=== PATIENT | male | born 1960 | race American Indian/Alaskan Native ===

== ENCOUNTER 2018-03-18 12:57 | Emergency (ER) | payer SELFPAY ==
[2018-03-18 13:34] VITALS: BP 140/91
--- NOTE | 2018-03-18 14:19 | Emergency Department Report ---
ED ENT HPI - General Chief complaint: Neuro Symptoms/Deficit Stated complaint: LFT SIDE JAW PAIN Time Seen by Provider: 03/18/18 14:12 Source: patient Mode of arrival: Ambulatory Limitations: No Limitations - History of Present Illness Initial comments: This is a 57-year-old male nontoxic, well nourished in appearance, no acute signs of distress presents to the ED with c/o of left lower toothache 3 weeks. Patient denies following up with a dentist. Patient stated that pain radiates from his job to his left side of head. Patient otherwise denies any head trauma. Patient describes toothache as aching level of 8 out of 10. Patient denies any facial swelling. Patient denies any numbness, tingling, fever, chills, headache, stiff neck, abdominal pain, chest pain, shortness of breath. Patient stated allergies to AGUSTO inhibitors. PMH includes HTN. MD complaint: tooth pain -: week(s) (3) Location: tooth # 1 - pain here Severity: mild Severity scale (0 -10): 8 Quality: aching Consistency: constant Improves with: none Worsens with: none Context- Dental: history of dental caries, poor dental care Associated Symptoms: gum swelling, toothache. denies: fever, cough, pain with swallowing, sore throat, tinnitus, hearing loss, discharge from ear, rhinorrhea - Related Data Previous Rx's Medication Instructions Recorded Last Taken Type Aspirin [Aspirin TAB] 325 mg PO QDAY #30 tablet 08/07/15 08/19/15 Rx AtorvaSTATin [Lipitor] 40 mg PO QHS #30 tablet 08/07/15 08/19/15 Rx Nitroglycerin [Nitrostat] 0.4 mg SL Q5M PRN #30 tablet 08/07/15 08/18/15 Rx ISOSORBIDE MONOnitrate [Imdur ER] 30 mg PO QDAY #30 tablet 08/15/15 08/19/15 Rx Spironolactone [Aldactone] 12.5 mg PO QDAY #30 tablet 08/15/15 08/19/15 Rx amLODIPine [Norvasc] 5 mg PO DAILY #30 tab 08/15/15 08/19/15 Rx Famotidine [Pepcid] 20 mg PO BID #10 tablet 08/19/15 Unknown Rx predniSONE [Deltasone] 20 mg PO BID #10 tab 08/19/15 Unknown Rx Acetaminophen/Codeine [Tylenol 1 tab PO Q6H PRN #12 tab 03/18/18 Unknown Rx /Codeine # 3 tab] Amoxicillin/K Clav Tab [Augmentin 1 tab PO Q12HR #20 tab 03/18/18 Unknown Rx 875 mg] Chlorhexidine Mouthwash [Peridex] 15 ml MM BID #1 bottle 03/18/18 Unknown Rx Ibuprofen [Motrin] 600 mg PO Q8H PRN #30 tablet 03/18/18 Unknown Rx Allergies Allergy/AdvReac Type Severity Reaction Status Date / Time AGUSTO Inhibitors Allergy Swelling Verified 08/19/15 20:20 ED Dental HPI - General Chief complaint: Neuro Symptoms/Deficit Stated complaint: LFT SIDE JAW PAIN Time Seen by Provider: 03/18/18 14:12 Source: patient Mode of arrival: Ambulatory Limitations: No Limitations - Related Data Previous Rx's Medication Instructions Recorded Last Taken Type Aspirin [Aspirin TAB] 325 mg PO QDAY #30 tablet 08/07/15 08/19/15 Rx AtorvaSTATin [Lipitor] 40 mg PO QHS #30 tablet 08/07/15 08/19/15 Rx Nitroglycerin [Nitrostat] 0.4 mg SL Q5M PRN #30 tablet 08/07/15 08/18/15 Rx ISOSORBIDE MONOnitrate [Imdur ER] 30 mg PO QDAY #30 tablet 08/15/15 08/19/15 Rx Spironolactone [Aldactone] 12.5 mg PO QDAY #30 tablet 08/15/15 08/19/15 Rx amLODIPine [Norvasc] 5 mg PO DAILY #30 tab 08/15/15 08/19/15 Rx Famotidine [Pepcid] 20 mg PO BID #10 tablet 08/19/15 Unknown Rx predniSONE [Deltasone] 20 mg PO BID #10 tab 08/19/15 Unknown Rx Acetaminophen/Codeine [Tylenol 1 tab PO Q6H PRN #12 tab 03/18/18 Unknown Rx /Codeine # 3 tab] Amoxicillin/K Clav Tab [Augmentin 1 tab PO Q12HR #20 tab 03/18/18 Unknown Rx 875 mg] Chlorhexidine Mouthwash [Peridex] 15 ml MM BID #1 bottle 03/18/18 Unknown Rx Ibuprofen [Motrin] 600 mg PO Q8H PRN #30 tablet 03/18/18 Unknown Rx Allergies Allergy/AdvReac Type Severity Reaction Status Date / Time AGUSTO Inhibitors Allergy Swelling Verified 08/19/15 20:20 ED Review of Systems ROS: Stated complaint: LFT SIDE JAW PAIN Other details as noted in HPI Constitutional: denies: chills, fever Eyes: denies: eye pain, eye discharge, vision change ENT: dental pain. denies: ear pain, throat pain Respiratory: denies: cough, shortness of breath, wheezing Cardiovascular: denies: chest pain, palpitations Endocrine: no symptoms reported Gastrointestinal: denies: abdominal pain, nausea, diarrhea Genitourinary: denies: urgency, dysuria Musculoskeletal: denies: back pain, joint swelling, arthralgia Skin: denies: rash, lesions Neurological: denies: headache, weakness, paresthesias Psychiatric: denies: anxiety, depression Hematological/Lymphatic: denies: easy bleeding, easy bruising ED Past Medical Hx - Past Medical History Hx Hypertension: Yes Hx Heart Attack/AMI: Yes ("mild" in 2005) Hx Diabetes: No Hx Asthma: No Hx COPD: No Additional medical history: CAD. Cardiac Cath here on - Surgical History Hx Open Heart Surgery: Yes (quintuple bypass 2005) Hx Appendectomy: Yes Additional Surgical History: Cardiac Cath. Open Heart Surgery 2005 - Social History Smoking Status: Never Smoker Substance Use Type: None - Medications Home Medications: Home Medications Medication Instructions Recorded Confirmed Last Taken Type Aspirin [Aspirin TAB] 325 mg PO QDAY #30 tablet 08/07/15 08/19/15 08/19/15 Rx AtorvaSTATin [Lipitor] 40 mg PO QHS #30 tablet 08/07/15 08/19/15 08/19/15 Rx Nitroglycerin [Nitrostat] 0.4 mg SL Q5M PRN #30 tablet 08/07/15 08/19/15 Rx ISOSORBIDE MONOnitrate [Imdur ER] 30 mg PO QDAY #30 tablet 08/15/15 08/19/15 Rx Spironolactone [Aldactone] 12.5 mg PO QDAY #30 tablet 08/15/15 08/19/15 Rx amLODIPine [Norvasc] 5 mg PO DAILY #30 tab 08/15/15 08/19/15 08/19/15 Rx Famotidine [Pepcid] 20 mg PO BID #10 tablet 08/19/15 Unknown Rx predniSONE [Deltasone] 20 mg PO BID #10 tab 08/19/15 Unknown Rx Acetaminophen/Codeine [Tylenol 1 tab PO Q6H PRN #12 tab 03/18/18 Unknown Rx /Codeine # 3 tab] Amoxicillin/K Clav Tab [Augmentin 1 tab PO Q12HR #20 tab 03/18/18 Unknown Rx 875 mg] Chlorhexidine Mouthwash [Peridex] 15 ml MM BID #1 bottle 03/18/18 Unknown Rx Ibuprofen [Motrin] 600 mg PO Q8H PRN #30 tablet 03/18/18 Unknown Rx ED Physical Exam - General Limitations: No Limitations General appearance: alert, in no apparent distress - Head Head exam: Present: atraumatic, normocephalic - Eye Eye exam: Present: normal appearance - ENT ENT exam: Present: mucous membranes moist, TM's normal bilaterally - Expanded ENT Exam Expanded Ear exam: Present: normal external inspection Mouth exam: Present: normal external inspection, tongue normal. Absent: drooling, trismus, muffled voice, tongue elevation, laceration Teeth exam: Present: dental caries, fractured tooth #, dental tenderness #, gingival enlargement, other (no facial swelling. No abscess) Throat exam: Positive: normal inspection, other (Uvula midline.). Negative: tonsillar erythema, tonsillomegaly, tonsillar exudate, R peritonsillar mass, L peritonsillar mass - Neck Neck exam: Present: normal inspection, full ROM. Absent: tenderness, meningismus, lymphadenopathy - Respiratory Respiratory exam: Present: normal lung sounds bilaterally. Absent: respiratory distress - Cardiovascular Cardiovascular Exam: Present: regular rate, normal rhythm. Absent: systolic murmur, diastolic murmur, rubs, gallop - GI/Abdominal GI/Abdominal exam: Present: soft, normal bowel sounds - Rectal Rectal exam: Present: deferred - Extremities Exam Extremities exam: Present: normal inspection - Back Exam Back exam: Present: normal inspection - Neurological Exam Neurological exam: Present: alert, oriented X3, CN II-XII intact, normal gait - Psychiatric Psychiatric exam: Present: normal affect, normal mood - Skin Skin exam: Present: warm, dry, intact, normal color. Absent: rash ED Course Vital Signs 03/18/18 13:29 Temperature 99.5 F Pulse Rate 84 Respiratory 16 Rate Blood Pressure 140/91 O2 Sat by Pulse 96 Oximetry - Reevaluation(s) Reevaluation #1: 03/18/18 14:17 Patient speak in full sentences with no signs of distress noted. Critical care attestation.: If time is entered above; I have spent that time in minutes in the direct care of this critically ill patient, excluding procedure time. ED Disposition Clinical Impression: Dental caries, Gingivitis Disposition: TO HOME OR SELFCARE Is pt being admited?: No Does the pt Need Aspirin: No Condition: Stable Instructions: Gingivitis (ED), Acetaminophen/Codeine (By mouth), Dental Caries (ED) Additional Instructions: Follow-up with a dentist doctor in 3-5 days or if symptoms worsen and continue return to emergency room as soon as possible. Do not operate any machinery while taking Tylenol with codeine as this may cause drowsiness. Prescriptions: Acetaminophen/Codeine [Tylenol /Codeine # 3 tab] 1 tab PO Q6H PRN #12 tab PRN Reason: Pain , Severe (7-10) Amoxicillin/K Clav Tab [Augmentin 875 mg] 1 tab PO Q12HR #20 tab Chlorhexidine Mouthwash [Peridex] 15 ml MM BID #1 bottle Ibuprofen [Motrin] 600 mg PO Q8H PRN #30 tablet PRN Reason: Pain Referrals: PRIMARY CAREMD [Primary Care Provider] - 3-5 Days LAKEISHA GAMA MD [Staff Physician] - 3-5 Days [facility] [Outside] - 3-5 Days Forms: Work/School Release Form(ED)
== END 2018-03-18 14:30 | disposition home or self-care (01) ==
LOC: ED 12:57
DX: K02.9 Dental caries, unspecified (principal); K05.10 Chronic gingivitis, plaque induced; I10 Essential (primary) hypertension; I25.2 Old myocardial infarction; Z90.89 Acquired absence of other organs; Z86.79 Personal history of other diseases of the circulatory system; Z88.8 Allergy status to other drugs, medicaments and biological substances
CPT/HCPCS: 99282

== ENCOUNTER 2020-07-28 13:21 | Emergency (ER) | payer OTHER ==
[2020-07-28] MEDS ORDERED: ASPIRIN 325 MG TAB PO ONE (13:27)
--- NOTE | 2020-07-28 13:58 | XRay Report ---
CHEST 2 VIEWS INDICATION: Chest Pain. COMPARISON: None FINDINGS: Support devices: None. Heart: Heart size is within normal limits. Previous CABG changes are suspected. Lungs/pleura: Subtle focal airspace opacities are suggested in the mid and inferior left lung. The ri ght lung is clear. No pleural effusion or pneumothorax. Additional findings: None. IMPRESSION: Subtle left lung airspace opacities which could represent early infiltrate. Please correlate with the patient's clinical presentation. Signer Name: Chadd Gomez Jr, MD Signed: 07/28/2020 1:54 PM Workstation Name: [id number]
[2020-07-28 14:01] LABS: Basophils % (Auto) 0.3 % (0.0-1.8); Eosinophils % (Auto) 0.1 % (0.0-4.3); Hemoglobin 14.3 gm/dl (11.8-15.2); Lymphocytes % (Auto) 19.4 % (13.4-35.0); Mean Corpuscular HGB Conc 36 % (32-34); Mean Corpuscular Volume 91 fl (84-94); Monocytes # (Auto) 0.5 K/mm3 (0.0-0.8); Monocytes % (Auto) 9.1 % (0.0-7.3); Platelet Count 252 K/mm3 (140-440); Red Blood Count 4.38 M/mm3 (3.65-5.03); Red Cell Distribution Width 14.1 % (13.2-15.2)
[2020-07-28 14:22] LABS: BUN/Creatinine Ratio 18; Blood Urea Nitrogen 22 mg/dL (9-20); Calcium 9.1 mg/dL (8.4-10.2); Hemolysis Index 1
--- NOTE | 2020-07-28 16:22 | Emergency Department Report ---
ED Chest Pain HPI - General Chief Complaint: Chest Pain Stated Complaint: CHEST PAIN Time Seen by Provider: 07/28/20 15:49 Source: patient Mode of arrival: Ambulatory Limitations: No Limitations - History of Present Illness Initial Comments: Chief complaint: I just have been feeling bad for the last 2 weeks. HPI: This is a 60-year-old male with CAD status post MO status post CABG, quintuple bypass 2005 who presents with fever chills body aches fatigue shortness of breath chest pain poor appetite for the last 2 weeks. Patient Jose Antonio was exposed to COVID-19. 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 She underwent COVID-19 testing on yesterday. Unknown results. Patient has had cough. Persistent left-sided chest pain muscle aches especially in his legs. Patient called the [place] advice nurse who recommended evaluation emergency department. Patient's chest pain mostly persistent sharp in nature. No change with exertion breathing eating. He denies loss of sense of taste or smell. He does have diarrhea MD Complaint: chest pain -: Gradual, week(s) (2 weeks) Onset: during rest Pain Location: left chest Pain Radiation: LUE Severity: mild Severity scale (0 -10): 4 Quality: sharp Consistency: constant Improves With: nothing Worsens With: nothing Other Symptoms: cough, other (Shortness of breath fever chills body aches) Treatments Prior to Arrival: none - Related Data Previous Rx's Medication Instructions Recorded Last Taken Type Aspirin 325 mg PO QDAY #30 tablet 08/07/15 08/19/15 Rx AtorvaSTATin [Lipitor] 40 mg PO QHS #30 tablet 08/07/15 08/19/15 Rx Nitroglycerin [Nitrostat] 0.4 mg SL Q5M PRN #30 tablet 08/07/15 08/18/15 Rx ISOSORBIDE MONOnitrate [Imdur ER] 30 mg PO QDAY #30 tablet 08/15/15 08/19/15 Rx Spironolactone [Aldactone] 12.5 mg PO QDAY #30 tablet 08/15/15 08/19/15 Rx amLODIPine [Norvasc] 5 mg PO DAILY #30 tab 08/15/15 08/19/15 Rx Famotidine [Pepcid] 20 mg PO BID #10 tablet 08/19/15 Unknown Rx predniSONE [Deltasone] 20 mg PO BID #10 tab 08/19/15 Unknown Rx Acetaminophen/Codeine [Tylenol 1 tab PO Q6H PRN #12 tab 03/18/18 Unknown Rx /Codeine # 3 tab] Amoxicillin/K Clav Tab [Augmentin 1 tab PO Q12HR #20 tab 03/18/18 Unknown Rx 875 mg] Chlorhexidine Mouthwash [Peridex] 15 ml MM BID #1 bottle 03/18/18 Unknown Rx Ibuprofen [Motrin] 600 mg PO Q8H PRN #30 tablet 03/18/18 Unknown Rx Azithromycin [Zithromax TAB] 250 mg PO QDAY 4 Days #4 tablet 07/28/20 Unknown Rx Allergies Allergy/AdvReac Type Severity Reaction Status Date / Time AGUSTO Inhibitors Allergy Swelling Verified 08/19/15 20:20 Heart Score - HEART Score History: Slightly suspicious EKG: Non-specific Age: 45-65 Risk factors: > 3 risk factors or hx of atherosclerotic disease Troponin: < normal limit HEART Score: 4 ED Review of Systems ROS: Stated complaint: CHEST PAIN Other details as noted in HPI Comment: All other systems reviewed and negative Constitutional: fever, malaise Eyes: as per HPI Respiratory: cough, shortness of breath Gastrointestinal: other (Poor appetite). denies: abdominal pain, nausea, vomiting Neurological: denies: headache ED Past Medical Hx - Past Medical History Previous Medical History?: Yes Hx Hypertension: Yes Hx Heart Attack/AMI: Yes ("mild" in 2005) Hx Diabetes: No Hx Asthma: No Hx COPD: No Hx Dementia: No Additional medical history: CAD. Cardiac Cath here on - Surgical History Past Surgical History?: Yes Hx Open Heart Surgery: Yes (quintuple bypass 2005) Hx Appendectomy: Yes Additional Surgical History: Cardiac Cath. Open Heart Surgery 2006 - Social History Smoking Status: Never Smoker Substance Use Type: None - Medications Home Medications: Home Medications Medication Instructions Recorded Confirmed Last Taken Type Aspirin 325 mg PO QDAY #30 tablet 08/07/15 08/19/15 08/19/15 Rx AtorvaSTATin [Lipitor] 40 mg PO QHS #30 tablet 08/07/15 08/19/15 08/19/15 Rx Nitroglycerin [Nitrostat] 0.4 mg SL Q5M PRN #30 tablet 08/07/15 08/19/15 08/18/15 Rx ISOSORBIDE MONOnitrate [Imdur ER] 30 mg PO QDAY #30 tablet 08/15/15 08/19/15 08/19/15 Rx Spironolactone [Aldactone] 12.5 mg PO QDAY #30 tablet 08/15/15 08/19/15 08/19/15 Rx amLODIPine [Norvasc] 5 mg PO DAILY #30 tab 08/15/15 08/19/15 08/19/15 Rx Famotidine [Pepcid] 20 mg PO BID #10 tablet 08/19/15 Unknown Rx predniSONE [Deltasone] 20 mg PO BID #10 tab 08/19/15 Unknown Rx Acetaminophen/Codeine [Tylenol 1 tab PO Q6H PRN #12 tab 03/18/18 Unknown Rx /Codeine # 3 tab] Amoxicillin/K Clav Tab [Augmentin 1 tab PO Q12HR #20 tab 03/18/18 Unknown Rx 875 mg] Chlorhexidine Mouthwash [Peridex] 15 ml MM BID #1 bottle 03/18/18 Unknown Rx Ibuprofen [Motrin] 600 mg PO Q8H PRN #30 tablet 03/18/18 Unknown Rx Azithromycin [Zithromax TAB] 250 mg PO QDAY 4 Days #4 tablet 07/28/20 Unknown Rx ED Physical Exam - General Limitations: No Limitations General appearance: alert, in no apparent distress - Head Head exam: Present: atraumatic, normocephalic - Eye Eye exam: Present: normal appearance - ENT ENT exam: Present: mucous membranes moist - Neck Neck exam: Present: normal inspection, full ROM - Respiratory Respiratory exam: Present: normal lung sounds bilaterally. Absent: respiratory distress, wheezes, rales, rhonchi - Cardiovascular Cardiovascular Exam: Present: regular rate, normal rhythm, normal heart sounds. Absent: systolic murmur, diastolic murmur, rubs, gallop - GI/Abdominal GI/Abdominal exam: Present: soft, normal bowel sounds. Absent: distended, tenderness, guarding, rebound - Rectal Rectal exam: Present: deferred - Extremities Exam Extremities exam: Present: normal inspection - Neurological Exam Neurological exam: Present: alert, oriented X3 - Psychiatric Psychiatric exam: Present: normal affect, normal mood - Skin Skin exam: Present: warm, dry, intact, normal color. Absent: rash ED Course Vital Signs 07/28/20 07/28/20 07/28/20 13:25 16:29 16:30 Temperature 99.1 F 99.5 F Pulse Rate 89 Respiratory 18 13 Rate Blood Pressure 148/73 Blood Pressure [Right] O2 Sat by Pulse 93 93 Oximetry 07/28/20 16:32 Temperature 99.5 F Pulse Rate 87 Respiratory 13 Rate Blood Pressure Blood Pressure 135/53 [Right] O2 Sat by Pulse 93 Oximetry AGUILAR score - Aguilar Score Age > 65: (0) No Aspirin use within the Past 7 Days: (1) Yes 3 or more CAD Risk Factors: (1) Yes 2 or more Angina events in past 24 hrs: (1) Yes Known CAD with more than 50% Stenosis: (0) No Elevated Cardiac Markers: (0) No ST Deviation Greater than 0.5mm: (0) No AGUILAR Score: 3 ED Medical Decision Making - Lab Data Result diagrams: 07/28/20 13:34 07/28/20 13:34 Laboratory Results - last 24 hr 07/28/20 07/28/20 13:34 13:34 WBC 5.3 RBC 4.38 Hgb 14.3 Hct 40.0 MCV 91 MCH 33 H MCHC 36 H RDW 14.1 Plt Count 252 Lymph % (Auto) 19.4 [place] % (Auto) 9.1 H Eos % (Auto) 0.1 Baso % (Auto) 0.3 Lymph # (Auto) 1.0 L [place] # (Auto) 0.5 Eos # (Auto) 0.0 Baso # (Auto) 0.0 Seg Neutrophils % 71.1 H Seg Neutrophils # 3.8 Sodium 139 Potassium 3.6 Chloride 101.0 Carbon Dioxide 28 Anion Gap 14 BUN 22 H Creatinine 1.2 Estimated GFR > 60 BUN/Creatinine Ratio 18 Glucose 103 H Calcium 9.1 Troponin T < 0.010 - EKG Data -: EKG Interpreted by [facility] E[facility] shows normal: sinus rhythm, axis, intervals Rate: normal - EKG Data When compared to previous EKG there are: no significant change 07/28/20 16:25 EKG obtained 1329 EKG interpreted by [facility] EKG compared to EKG obtained July 2015 EKG unchanged from August 15, 2015 Normal sinus rhythm rate 85 bpm normal axis normal intervals no ST elevation nonischemic T wave pattern inferior Q waves in leads II, III, aVF 07/28/20 16:31 - Radiology Data Radiology results: report reviewed, image reviewed CHEST 2 VIEWS INDICATION: Chest Pain. COMPARISON: None FINDINGS: Support devices: None. Heart: Heart size is within normal limits. Previous CABG changes are suspected. Lungs/pleura: Subtle focal airspace opacities are suggested in the mid and inferior left lung. The right lung is clear. No pleural effusion or pneumothorax. Additional findings: None. IMPRESSION: Subtle left lung airspace opacities which could represent early infiltrate. Please correlate with the patient's clinical presentation - Medical Decision Making 1. Generalized constitutional symptoms of fever chills body aches cough poor appetite suspected COVID-19 findings of pneumonia atypical pneumonia chest radiograph Patient given prescribed azithromycin. Oxygen saturation 93% on room air 2. Chest pain: Attributed to atypical pneumonia COVID-19. Chest pain highly atypical for ACS. Troponin negative x 2 EKG is unchanged. Although heart score is 4 I suspect chest pain is due to pneumonia. [facility] is [facility] He understands to return for severe shortness of breath. Critical care attestation.: If time is entered above; I have spent that time in minutes in the direct care of this critically ill patient, excluding procedure time. ED Disposition Clinical Impression: Suspected COVID-19 virus infection, Atypical pneumonia Disposition: DC-01 TO HOME OR SELFCARE Is pt being admited?: No Does the pt Need Aspirin: No Condition: Stable Instructions: Community-Acquired Pneumonia, Adult, [id number], COVID-19 Frequently Asked Questions Prescriptions: Azithromycin [Zithromax TAB] 250 mg PO QDAY 4 Days #4 tablet Referrals: PRIMARY CARE, [Referring] - 3-5 Days
[2020-07-28] MEDS ORDERED: ASPIRIN 325 MG TAB ONE (16:33)
[2020-07-28] MEDS ORDERED: AZITHROMYCIN 250 MG TAB PO ONE (17:28)
[2020-07-28 18:32] VITALS: BP 140/82
== END 2020-07-28 18:32 | disposition home or self-care (01) ==
LOC: ED 13:21
DX: J18.9 Pneumonia, unspecified organism (principal); Z20.828 Contact with and (suspected) exposure to other viral communicable diseases; I25.2 Old myocardial infarction; I10 Essential (primary) hypertension; Z98.890 Other specified postprocedural states; Z79.2 Long term (current) use of antibiotics; Z79.899 Other long term (current) drug therapy; Z88.8 Allergy status to other drugs, medicaments and biological substances
CPT/HCPCS: 36415; 71046; 80048; 84484; 85025; 93005

== ENCOUNTER 2021-10-30 16:53 | Inpatient (IN) | payer OTHER ==
[2021-10-30] MEDS ORDERED: NITROGLYCERIN 0.4 MG TAB SUBL SL ONE (18:30)
--- NOTE | 2021-10-30 18:30 | Emergency Department Report ---
ED General Adult HPI - General Chief complaint: Chest Pain Stated complaint: CHESTPAIN PUI?: Yes Time Seen by Provider: 10/30/21 18:22 Source: patient, EMS ( EMS documentation not available at time of chart dictation ), RN notes reviewed, old records reviewed Mode of arrival: Stretcher Limitations: No Limitations - History of Present Illness Initial comments: The patient was evaluated in the emergency department for symptoms described in the history of present illness. He/she was evaluated in the context of the global COVID-19 pandemic, which necessitated consideration that the patient might be at risk for infection with the virus that causes COVID-19. Institutional protocols and algorithms that pertain to the evaluation of patients at risk for COVID-19 are in a state of rapid change based on information released by regulatory bodies including the CDC and federal and state organizations. These policies and algorithms were followed during the patient's care in the emergency department. Please note that these policies, procedures and recommendations changed on a rapid basis. During entire history and physical, had a complete personal protective equipment. Primary CARE doctor: [facility]. Past medical history: Not COVID-19 vaccinated, CAD, [place], CABG, known chronic bradycardia, hypertension, obesity, hyperlipidemia The patient is a 61-year-old gentleman, presenting to the ER today with a complaint of left-sided chest pain, shortness of breath, that radiates to the left arm and neck. Denies travel, surgery, immobilization, DVT/PE risk factors. Denies loss of taste and smell. Given aspirin and nitroglycerin by EMS in the field. Had improvement in symptoms. Patient reportedly had hypoxia in the field via EMS, but is not currently hypoxic at this time. No recent cardiac re stratification, stress test or catheterization that he is aware of -: Sudden Location: chest Radiation: neck, extremity Severity scale (0 -10): 10 Quality: aching Consistency: constant Improves with: medication Worsens with: movement - Related Data Previous Rx's Medication Instructions Recorded Last Taken Type Aspirin 325 mg PO QDAY #30 tablet 08/07/15 08/19/15 Rx AtorvaSTATin [Lipitor] 40 mg PO QHS #30 tablet 08/07/15 08/19/15 Rx Nitroglycerin [Nitrostat] 0.4 mg SL Q5M PRN #30 tablet 08/07/15 08/18/15 Rx ISOSORBIDE MONOnitrate [Imdur ER] 30 mg PO QDAY #30 tablet 08/15/15 08/19/15 Rx Spironolactone [Aldactone] 12.5 mg PO QDAY #30 tablet 08/15/15 08/19/15 Rx amLODIPine [Norvasc] 5 mg PO DAILY #30 tab 08/15/15 08/19/15 Rx Famotidine [Pepcid] 20 mg PO BID #10 tablet 08/19/15 Unknown Rx predniSONE [Deltasone] 20 mg PO BID #10 tab 08/19/15 Unknown Rx Acetaminophen/Codeine [Tylenol 1 tab PO Q6H PRN #12 tab 03/18/18 Unknown Rx /Codeine # 3 tab] Amoxicillin/K Clav Tab [Augmentin 1 tab PO Q12HR #20 tab 03/18/18 Unknown Rx 875 mg] Chlorhexidine Mouthwash [Peridex] 15 ml MM BID #1 bottle 03/18/18 Unknown Rx Ibuprofen [Motrin] 600 mg PO Q8H PRN #30 tablet 03/18/18 Unknown Rx Azithromycin [Zithromax TAB] 250 mg PO QDAY 4 Days #4 tablet 07/28/20 Unknown Rx Allergies Allergy/AdvReac Type Severity Reaction Status Date / Time AGUSTO Inhibitors Allergy Swelling Verified 10/30/21 17:01 lisinopril AdvReac Angioedema Verified 10/30/21 17:02 ED Review of Systems ROS: Stated complaint: CHESTPAIN Other details as noted in HPI Constitutional: malaise. denies: diaphoresis Eyes: denies: eye discharge ENT: denies: congestion Respiratory: shortness of breath Cardiovascular: chest pain Gastrointestinal: denies: nausea, vomiting Musculoskeletal: denies: back pain Neurological: paresthesias Hematological/Lymphatic: denies: easy bleeding ED Past Medical Hx - Past Medical History Hx Hypertension: Yes Hx Heart Attack/AMI: Yes ("mild" in 2005) Hx Diabetes: No Hx Asthma: No Hx COPD: No Hx Dementia: No Additional medical history: CAD. Cardiac Cath here on - Surgical History Hx Open Heart Surgery: Yes (quintuple bypass 2005) Hx Appendectomy: Yes Additional Surgical History: Cardiac Cath. Open Heart Surgery 2006 - Social History Smoking Status: Never Smoker Substance Use Type: None - Medications Home Medications: Home Medications Medication Instructions Recorded Confirmed Last Taken Type Aspirin 325 mg PO QDAY #30 tablet 08/07/15 10/30/21 08/19/15 Rx AtorvaSTATin [Lipitor] 40 mg PO QHS #30 tablet 08/07/15 10/30/21 08/19/15 Rx Nitroglycerin [Nitrostat] 0.4 mg SL Q5M PRN #30 tablet 08/07/15 10/30/21 08/18/15 Rx ISOSORBIDE MONOnitrate [Imdur ER] 30 mg PO QDAY #30 tablet 08/15/15 10/30/21 08/19/15 Rx Spironolactone [Aldactone] 12.5 mg PO QDAY #30 tablet 08/15/15 10/30/21 08/19/15 Rx amLODIPine [Norvasc] 5 mg PO DAILY #30 tab 08/15/15 10/30/21 08/19/15 Rx Famotidine [Pepcid] 20 mg PO BID #10 tablet 08/19/15 10/30/21 Unknown Rx predniSONE [Deltasone] 20 mg PO BID #10 tab 08/19/15 10/30/21 Unknown Rx Acetaminophen/Codeine [Tylenol 1 tab PO Q6H PRN #12 tab 03/18/18 10/30/21 Unknown Rx /Codeine # 3 tab] Amoxicillin/K Clav Tab [Augmentin 1 tab PO Q12HR #20 tab 03/18/18 10/30/21 Unknown Rx 875 mg] Chlorhexidine Mouthwash [Peridex] 15 ml MM BID #1 bottle 03/18/18 10/30/21 Unknown Rx Ibuprofen [Motrin] 600 mg PO Q8H PRN #30 tablet 03/18/18 10/30/21 Unknown Rx Azithromycin [Zithromax TAB] 250 mg PO QDAY 4 Days #4 tablet 07/28/20 10/30/21 Unknown Rx ED Physical Exam - General Limitations: No Limitations General appearance: alert, anxious, obese - Head Head exam: Present: atraumatic, normocephalic - Eye Eye exam: Present: normal appearance, EOMI. Absent: nystagmus - ENT ENT exam: Present: normal exam, normal orophraynx, mucous membranes moist, normal external ear exam - Neck Neck exam: Present: normal inspection, full ROM. Absent: tenderness, meningismus - Respiratory Respiratory exam: Present: other (Pulmonary auscultation not performed secondary to lack of disposable stethoscope). Absent: respiratory distress, stridor - Cardiovascular Cardiovascular Exam: Present: bradycardia (Seen on EKG and library monitor), other (Cardiac auscultation not performed secondary to lack of disposable stet hoscope). Absent: JVD - GI/Abdominal GI/Abdominal exam: Present: soft. Absent: distended, tenderness, guarding, rebound, rigid, pulsatile mass - Rectal Rectal exam: Present: deferred - Extremities Exam Extremities exam: Present: normal inspection, full ROM, other (2+ pulses noted in the bilateral upper and lower extremities. There is no palpable cord. negative Homans sign. Muscular compartments are soft. The pelvis is stable.). Absent: pedal edema, calf tenderness - Back Exam Back exam: Present: normal inspection. Absent: tenderness, CVA tenderness (R), CVA tenderness (L), paraspinal tenderness, vertebral tenderness - Neurological Exam Neurological exam: Present: alert, oriented X3, other (No facial droop. Tongue midline. Extraocular movements intact bilaterally. Facial sensation intact to light touch in V1, V2, V3 distribution bilaterally. 5 and a 5 strength in 4 extremities. Sensation intact to light touch in 4 extremities.). Absent: motor sensory deficit - Psychiatric Psychiatric exam: Present: flat affect - Skin Skin exam: Present: warm, dry, intact, normal color. Absent: rash ED Course Vital Signs 10/30/21 10/30/21 10/30/21 17:01 18:11 18:15 Temperature 98.9 F 97.4 F L Pulse Rate 66 47 L 47 L Respiratory 11 L 11 L Rate Blood Pressure 153/66 Blood Pressure 120/80 153/66 [Left] O2 Sat by Pulse 94 92 92 Oximetry O2 Sat by Pulse Oximetry [ Digit-Finger] 10/30/21 10/30/21 10/30/21 18:42 19:15 19:39 Temperature 98 F Pulse Rate 47 L 50 L Respiratory 12 Rate Blood Pressure 153/69 Blood Pressure 130/74 [Left] O2 Sat by Pulse 94 Oximetry O2 Sat by Pulse 97 Oximetry [ Digit-Finger] - Reevaluation(s) Reevaluation #1: 10/30/21 19:07 Differential diagnosis, include but not limited to: GERD, gastritis, hiatal hernia, pneumonia, costochondritis, COVID-19, pneumothorax, acute coronary syndrome Assessment and plan: 61-year-old gentleman, who in the emergency room, is not tachypneic or tachycardic, is not hypoxic, who denies DVT/PE risk factors, who is low risk by Wells criteria for pulmonary embolism, presenting with acute chest pain, suspicious for coronary artery disease. Place patient on isolation and library monitor. Obtain x-ray of the chest, and appropriate laboratory studies. Treat aggressively with nitroglycerin, and morphine. He has already received aspirin from EMS. We will discussed with cardiology once initial diagnostics have resulted. Anticipate admission to the medical service for high risk chest pain/cardiac risk stratification. Discussed this plan of care with the patient, who is agreeable to the plan of care. 10/30/21 19:38 Discussed the patient's history, physical, laboratory studies and imaging studies EKG findings and overall clinical impression with cardiology on-call, Dr. Segura, of [facility] cardiology. Admission recommended, for accelerated cardiac restratification. Patient not hypoxic at this time. Hospital physician, Dr. Balderas, to admit patient to the medical service - Pulse Oximetry Interpretation Digit-Finger Initial Pulse Oximetry Readin O2 Sat by Pulse Oximetry: 97 Actions Taken: none ED Medical Decision Making - Lab Data Result diagrams: 10/30/21 18:35 10/30/21 18:35 Vital Signs 10/30/21 10/30/21 10/30/21 17:01 18:11 18:15 Temperature 98.9 F 97.4 F L Pulse Rate 66 47 L 47 L Respiratory 11 L 11 L Rate Blood Pressure 153/66 Blood Pressure 120/80 153/66 [Left] O2 Sat by Pulse 94 92 92 Oximetry 10/30/21 18:42 Temperature Pulse Rate 47 L Respiratory Rate Blood Pressure 153/69 Blood Pressure [Left] O2 Sat by Pulse Oximetry - EKG Data -: EKG Interpreted by [place] Rate: bradycardia - EKG Data 10/30/21 19:06 The EKG is interpreted at 18: 24 Sinus rhythm, bradycardia, 59 bpm. Normal P wave axis. QTC 4 5 6 ms. Q waves noted in inferior leads. Abnormal EKG. Not a STEMI. Appears to be grossly unchanged when compared to prior EKG - Radiology Data Radiology results: pending, report reviewed, image reviewed CHEST 1 VIEW 10/30/2021 6:06 PM INDICATION / CLINICAL INFORMATION: Chest Pain. COMPARISON: 2 views of the chest from 07/28/2020. FINDINGS: SUPPORT DEVICES: None. HEART / MEDIASTINUM: Stable. LUNGS / PLEURA: No significant pulmonary abnormality. No significant pleural effusion. No pneumothorax. ADDITIONAL FINDINGS: No significant additional findings. IMPRESSION: 1. No acute abnormality of the chest. Signer Name: Darvin Hess MD Signed: 10/30/2021 6:28 PM Workstation Name: [id number] Critical care attestation.: If time is entered above; I have spent that time in minutes in the direct care of this critically ill patient, excluding procedure time. ED Disposition Clinical Impression: Acute chest pain Disposition: 09 ADMITTED INPATIENT Is pt being admited?: Yes Does the pt Need Aspirin: No Condition: Good Instructions: Chest Pain (ED) Heart Score - HEART Score History: Highly suspicious EKG: Non-specific Age: 45-65 Risk factors: > 3 risk factors or hx of atherosclerotic disease Troponin: < normal limit HEART Score: 6 - EKG Read Time Time EKG Completed: 18:24 EKG Read Time: 18:24 - Critical Actions Critical Actions: 4-6 pts:12-16.6% risk of adverse cardiac event. Should be admitted
[2021-10-30] MEDS ORDERED: MORPHINE 4 MG/1 ML INJ IV ONE (18:31)
[2021-10-30] MEDS ORDERED: ONDANSETRON 4 MG/2 ML INJ IV ONE (18:31)
[2021-10-30 19:16] LABS: Basophils % (Auto) 0.7 % (0.0-1.8); Eosinophils # (Auto) 0.1 K/mm3 (0.0-0.4); Eosinophils % (Auto) 1.2 % (0.0-4.3); Hematocrit 41.3 % (35.5-45.6); Hemoglobin 13.2 gm/dl (11.8-15.2); Lymphocytes # (Auto) 1.7 K/mm3 (1.2-5.4); Mean Corpuscular HGB Conc 32 % (32-34); Mean Corpuscular Volume 94 fl (84-94); Monocytes # (Auto) 0.5 K/mm3 (0.0-0.8); Monocytes % (Auto) 8.2 % (0.0-7.3); Platelet Count 186 K/mm3 (140-440); Red Blood Count 4.38 M/mm3 (3.65-5.03); Red Cell Distribution Width 15.2 % (13.2-15.2)
[2021-10-30 19:26] LABS: Alanine Aminotransferase 47 units/L (7-56); Albumin 3.9 g/dL (3.9-5); BUN/Creatinine Ratio 24; Blood Urea Nitrogen 22 mg/dL (9-20); Calcium 8.5 mg/dL (8.4-10.2); Hemolysis Index 21
[2021-10-30] MEDS ORDERED: HYDROmorphone 1 MG/1 ML INJ IV PRN (19:31)
[2021-10-30] MEDS ORDERED: ALBUTEROL 2.5 MG/3 ML NEBU IH PRN (19:31)
[2021-10-30] MEDS ORDERED: MORPHINE 2 MG/1 ML INJ IV PRN (19:31)
[2021-10-30] MEDS ORDERED: ONDANSETRON 4 MG/2 ML INJ IV PRN (19:31)
[2021-10-30] MEDS ORDERED: ACETAMINOPHEN 325 MG TAB PO PRN (19:31)
--- NOTE | 2021-10-30 19:32 | XRay Report ---
CHEST 1 VIEW 10/30/2021 6:06 PM INDICATION / CLINICAL INFORMATION: Chest Pain. COMPARISON: 2 views of the chest from 07/28/2020. FINDINGS: SUPPORT DEVICES: None. HEART / MEDIASTINUM: Stable. LUNGS / PLEURA: No significant pulmonary abnormality. No significant pleural effusion. No pneumothora x. ADDITIONAL FINDINGS: No significant additional findings. IMPRESSION: 1. No acute abnormality of the chest. Signer Name: Darvin Hess MD Signed: 10/30/2021 7:28 PM Workstation Name: [id number]
--- NOTE | 2021-10-30 20:24 | History and Physical Report ---
History of Present Illness Chief complaint: My chest hurts History of present illness: 61 YO Male with Obesity, HTN, [place], CAD S/P CABG, HLD, GERD presents to ED for evaluation. Patient reports "my chest hurts". Patient states that he has experienced sudden onset of chest pain today that began this morning and has pe rsisted throughout the day. Patient states that pain is 7-10/10, was initially intermittent but has become more constant, localized to the left chest, associated with shortness of breath, crushing in nature, radiates to the left arm and neck, worsened with exertion, relieved with rest, relieved with nitro. Patient acknowledges decreased exercise tolerance, dyspnea on exertion as well as dyspnea at rest. EMS was notified and upon arrival the patient was found to be in distress and subsequently transported to [facility] for further care and evaluation of the aforementioned symptoms. The patient was seen and evaluated in the emergency department. All lab and imaging studies reviewed. Patient fou nd to have stable angina as well as clinical symptoms consistent with diastolic CHF. Patient mated to telemetry due to increased risk of worsening symptoms. Cardiology team consulted in ED. Patient initiated on ACS protocol as well as CHF protocol. Patient denies fever, chills, productive cough, skin rash, recent ill contacts, unilateral leg swelling, calf pain, individual/family history of DVT/PE/bleeding/blood clotting disorders, known exposure to COVID-19. Prior admission on 08/13/2015 reviewed. All medication listed at time of admission has been reconciled. Advanced care planning conducted in ED. Past History Past Medical History: acute [place], CAD, GERD, hypertension, hyperlipidemia Past Surgical History: appendectomy, CABG, Other (Cardiac cath) Social history: . denies: smoking, alcohol abuse Family history: diabetes, hypertension Medications and Allergies Allergies Allergy/AdvReac Type Severity Reaction Status Date / Time AGUSTO Inhibitors Allergy Swelling Verified 10/30/21 17:01 lisinopril AdvReac Angioedema Verified 10/30/21 17:02 Home Medications Medication Instructions Recorded Confirmed Last Taken Type Aspirin 325 mg PO QDAY #30 tablet 08/07/15 10/30/21 08/19/15 Rx AtorvaSTATin [Lipitor] 40 mg PO QHS #30 tablet 08/07/15 10/30/21 08/19/15 Rx Nitroglycerin [Nitrostat] 0.4 mg SL Q5M PRN #30 tablet 08/07/15 10/30/21 08/18/15 Rx ISOSORBIDE MONOnitrate [Imdur ER] 30 mg PO QDAY #30 tablet 08/15/15 10/30/21 08/19/15 Rx Spironolactone [Aldactone] 12.5 mg PO QDAY #30 tablet 08/15/15 10/30/21 08/19/15 Rx amLODIPine [Norvasc] 5 mg PO DAILY #30 tab 08/15/15 10/30/21 08/19/15 Rx Famotidine [Pepcid] 20 mg PO BID #10 tablet 08/19/15 10/30/21 Unknown Rx predniSONE [Deltasone] 20 mg PO BID #10 tab 08/19/15 10/30/21 Unknown Rx Acetaminophen/Codeine [Tylenol 1 tab PO Q6H PRN #12 tab 03/18/18 10/30/21 Unknown Rx /Codeine # 3 tab] Amoxicillin/K Clav Tab [Augmentin 1 tab PO Q12HR #20 tab 03/18/18 10/30/21 Unknown Rx 875 mg] Chlorhexidine Mouthwash [Peridex] 15 ml MM BID #1 bottle 03/18/18 10/30/21 Unknown Rx Ibuprofen [Motrin] 600 mg PO Q8H PRN #30 tablet 03/18/18 10/30/21 Unknown Rx Azithromycin [Zithromax TAB] 250 mg PO QDAY 4 Days #4 tablet 07/28/20 10/30/21 Unknown Rx Active Meds: Active Medications Acetaminophen (Acetaminophen 325 Mg Tab) 650 mg PO Q4H PRN PRN Reason: Pain MILD(1-3)/Fever >100.5/CEDEÑO Albuterol (Albuterol 2.5 Mg/3 Ml Nebu) 2.5 mg IH Q4HRT PRN PRN Reason: Shortness Of Breath Amlodipine Besylate (Amlodipine 5 Mg Tab) 5 mg PO DAILY [facility]ADIA Aspirin (Aspirin 325 Mg Tab) 325 mg PO QDAY [facility] Atorvastatin Calcium (Atorvastatin 40 Mg Tab) 40 mg PO QHS [facility]AD[facility] Famotidine (Famotidine 10 Mg Tab) 10 mg PO BID [facility]ADIA Famotidine (Famotidine 20 Mg Tab) 20 mg PO BID [facility] Hydromorphone HCl (Hydromorphone 1 Mg/1 Ml Inj) 0.5 mg IV Q3H PRN PRN Reason: Pain , Severe (7-10) Isosorbide Mononitrate (Isosorbide Mononitrate Er 30 Mg Tab) 30 mg PO QDAY [facility] Morphine Sulfate (Morphine 2 Mg/1 Ml Inj) 2 mg IV Q4H PRN PRN Reason: Pain, Moderate (4-6) Ondansetron HCl (Ondansetron 4 Mg/2 Ml Inj) 4 mg IV Q8H PRN PRN Reason: Nausea And Vomiting Prednisone (Prednisone 20 Mg Tab) 20 mg PO BID [facility] Sodium Chloride (Sodium Chloride 0.9% 10 Ml Flush Syringe) 10 ml IV BID [facility] Sodium Chloride (Sodium Chloride 0.9% 10 Ml Flush Syringe) 10 ml IV PRN PRN PRN Reason: LINE FLUSH Spironolactone (Spironolactone 25 Mg Tab) 12.5 mg PO QDAY [facility] Review of Systems Constitutional: no weight loss, no fever, no chills Ears, nose, mouth and throat: no ear pain, no tinnitis, no nose pain Cardiovascular: chest pain, shortness of breath, dyspnea on exertion, decreased exercise tolerance Respiratory: no cough, no cough with sputum, no hemoptysis Gastrointestinal: no abdominal pain, no nausea, no vomiting, no diarrhea, no constipation Genitourinary Male: no hematuria, no flank pain, no discharge, no urinary frequency, no urinary hesitancy Musculoskeletal: no neck stiffness, no neck pain, no shooting arm pain, no low back pain, no shooting leg pain Integumentary: no rash, no pruritis, no redness, no wounds, no jaundice Neurological: no head injury, no numbness, no tingling, no seizures, no tremors Psychiatric: no anxiety, no change in sleep habits, no insomnia, no change in appetite, no change in libido Endocrine: no cold intolerance, no polydipsia, no polyuria, no nocturia, no excessive sweating Hematologic/Lymphatic: no easy bruising, no easy bleeding Allergic/Immunologic: no urticaria, no allergic rhinitis Exam - Constitutional Vitals: Temp Pulse Resp BP Pulse Ox 98 F 50 L 12 130/74 97 10/30/21 19:15 10/30/21 19:15 10/30/21 19:15 10/30/21 19:15 10/30/21 19:43 General appearance: Present: mild distress, obese - EENT Eyes: Present: PERRL ENT: hearing intact, clear oral mucosa - Neck Neck: Present: supple, normal ROM - Respiratory Respiratory effort: normal Respiratory: bilateral: diminished, rales - Cardiovascular Heart Sounds: Present: S1 & S2. Absent: rub, click - Extremities Extremities: pulses symmetrical Extremity abnormal: edema Peripheral Pulses: within normal limits - Abdominal General gastrointestinal: Present: soft, non-tender, non-distended, normal bowel sounds Male genitourinary: Present: normal - Integumentary Integumentary: Present: clear, warm, dry - Musculoskeletal Musculoskeletal: gait normal, strength equal bilaterally - Psychiatric Psychiatric: appropriate mood/affect, intact judgment & insight - Neurologic Neurologic: CNII-XII intact, moves all extremities HEART Score - HEART Score EKG: Non-specific Age: 45-65 Risk factors: > 3 risk factors or hx of atherosclerotic disease Troponin: Troponin T < 0.010 ng/mL (0.00-0.029) 10/30/21 18:35 Troponin: < normal limit - Critical Actions Critical Actions: 4-6 pts:12-16.6% risk of adverse cardiac event. Should be admitted Results - Labs CBC & Chem 7: 10/30/21 18:35 10/30/21 18:35 Labs: Abnormal lab results 10/30/21 10/30/21 10/30/21 Range/Units 18:35 18:35 18:35 [place] % (Auto) 8.2 H (0.0-7.3) % Chloride 108.7 H (98-107) mmol/L BUN 22 H (9-20) mg/dL Total Creatine Kinase 286 H (55-170) units/L Assessment and Plan - Patient Problems (1) Angina at rest Status: Acute Plan to address problem: ACS protocol: Serial cardiac enzymes, EKG, telemetry monitoring, cardiology team consulted in ED, morphine, supplemental oxygen, nitro, aspirin, telemetry monitoring. (2) Diastolic CHF Status: Acute Qualifiers: Heart failure chronicity: acute Qualified Code(s): I50.31 - Acute diastolic (congestive) heart failure Plan to address problem: Strict I's/O, monitor urine output every shift, daily weight, afterload reduction, blood pressure control, thyroid panel, magnesium level, echocardiogram ordered and pending at time of admission, cardiology team consulted in ED. (3) Obesity hypoventilation syndrome Status: Acute Plan to address problem: Balanced diet, increase physical activity discharge, outpatient pulmonary follow-up for sleep study. (4) Hypertensive urgency Status: Acute Plan to address problem: Monitor blood pressure every shift, continue antihypertensive therapy. (5) DVT prophylaxis Status: Acute Plan to address problem: SCD to bilateral lower extremities while in bed, prophylactic anticoagulation (6) Advance care planning Status: Acute Plan to address problem: Disease education conducted, care plan discussed, diagnoses discussed, prognosis discussed, patient is full code. Patient knowledges understanding and agreement with care plan, +30 minutes. (7) Preventative health care Status: Acute Plan to address problem: Patient counseled regarding balanced diet, low-sodium diet, medication compliance, risk factor reduction, outpatient follow-up with primary care physician for age-appropriate screening tests.
[2021-10-30] MEDS ORDERED: predniSONE 20 MG TAB PO SCH (22:00)
[2021-10-30] MEDS ORDERED: FAMOTIDINE 20 MG TAB PO SCH (22:00)
[2021-10-30] MEDS: HEPARIN 5,000 UNIT/1 ML VIAL SUB-Q SCH (22:13)
[2021-10-30] MEDS: FAMOTIDINE 10 MG TAB PO SCH (22:17)
[2021-10-30 23:20] LABS: INR 0.92 (0.87-1.13)
[2021-10-31] MEDS ORDERED: REGADENOSON 0.4 MG/5 ML INJ IV ONE (08:00)
[2021-10-31 08:52] VITALS: BP 138/83
[2021-10-31] MEDS: FAMOTIDINE 10 MG TAB PO SCH (09:44)
[2021-10-31] MEDS: HEPARIN 5,000 UNIT/1 ML VIAL SUB-Q SCH (09:45)
[2021-10-31] MEDS ORDERED: amLODIPine 5 MG TAB PO SCH (10:00)
[2021-10-31] MEDS ORDERED: SPIRONOLACTONE 25 MG TAB PO SCH (10:00)
[2021-10-31] MEDS ORDERED: ASPIRIN 325 MG TAB PO SCH (10:00)
--- NOTE | 2021-10-31 13:47 | Consultation ---
History of Present Illness Consult date: 10/31/21 Consult reason: chest pain History of present illness: The patient is a 61-year-old man with long history of coronary artery disease. In 2005, he underwent four-vessel coronary artery bypass when he lived in [place]. In 2016, we performed a cardiac catheterization at this hospital that showed a patent DUNHAM graft to the LAD. The saphenous vein grafts to the diagonal branch and obtuse marginal were occluded, but we found the obtuse marginal system to be well perfused with no significant obstructive lesions in the [place] system. The saphenous vein graft to the right coronary artery was also occluded, and the target vessel was found to be very small caliber, diffusely diseased with the distal branches perfused by collaterals from the left. Based on this anatomy, he was recommended for medical therapy for small vessel disease and chronic stable angina. He receives his routine cardiac care at the [facility] and underwent a follow- up stress test just 3 months ago at the [facility], reported as negative. He has in addition, a severe ischemic cardiomyopathy. In 2016 we recorded his left ventricular ejection fraction at 20 to 25%, and he states that his doctors at the [facility] have reported that consistently at less than 30%. He is unaware of any recommendations by his outpatient cardiologists for primary ICD implant. He presents to the hospital at this time with chest pain, somewhat reminiscent of his chronic angina pectoris. He reports compliance with his medical therapy, but continues to smoke cigarettes AGAINST MEDICAL ADVICE. After initial management in the hospital, he is currently chest pain-free, asymptomatic. EKG was sinus bradycardia at 50, old inferior myocardial infarction, but no acute ST or T wave abnormality. Chest x-ray shows a mild to moderate cardiomegaly, clear lung arauz without infiltrate or edema. Past History Past Medical History: acute CT, CAD, GERD, heart failure, hypertension, hyperlipidemia Past Surgical History: appendectomy, CABG, Other (Cardiac cath) Social history: . denies: smoking, alcohol abuse Family history: diabetes, hypertension Medications and Allergies Allergies Allergy/AdvReac Type Severity Reaction Status Date / Time AGUSTO Inhibitors Allergy Swelling Verified 10/30/21 17:01 lisinopril AdvReac Angioedema Verified 10/30/21 17:02 Home Medications Medication Instructions Recorded Confirmed Last Taken Type Aspirin 325 mg PO QDAY #30 tablet 02/15/16 05/10/22 02/27/16 Rx AtorvaSTATin [Lipitor] 40 mg PO QHS #30 tablet 08/07/15 10/30/21 08/19/15 Rx Nitroglycerin [Nitrostat] 0.4 mg SL Q5M PRN #30 tablet 08/07/15 10/30/21 08/18/15 Rx ISOSORBIDE MONOnitrate [Imdur ER] 30 mg PO QDAY #30 tablet 08/15/15 10/30/21 08/19/15 Rx Spironolactone [Aldactone] 12.5 mg PO QDAY #30 tablet 08/15/15 10/30/21 08/19/15 Rx amLODIPine [Norvasc] 5 mg PO DAILY #30 tab 08/15/15 10/30/21 08/19/15 Rx Famotidine [Pepcid] 20 mg PO BID #10 tablet 08/19/15 10/30/21 Unknown Rx predniSONE [Deltasone] 20 mg PO BID #10 tab 08/19/15 10/30/21 Unknown Rx Acetaminophen/Codeine [Tylenol 1 tab PO Q6H PRN #12 tab 03/18/18 10/30/21 Unknown Rx /Codeine # 3 tab] Amoxicillin/K Clav Tab [Augmentin 1 tab PO Q12HR #20 tab 03/18/18 10/30/21 Unknown Rx 875 mg] Chlorhexidine Mouthwash [Peridex] 15 ml MM BID #1 bottle 03/18/18 10/30/21 Unknown Rx Ibuprofen [Motrin] 600 mg PO Q8H PRN #30 tablet 03/18/18 10/30/21 Unknown Rx Azithromycin [Zithromax TAB] 250 mg PO QDAY 4 Days #4 tablet 07/28/20 10/30/21 Unknown Rx Active Meds: Active Medications Acetaminophen (Acetaminophen 325 Mg Tab) 650 mg PO Q4H PRN PRN Reason: Pain MILD(1-3)/Fever >100.5/CEDEÑO Albuterol (Albuterol 2.5 Mg/3 Ml Nebu) 2.5 mg IH Q4HRT PRN PRN Reason: Shortness Of Breath Amlodipine Besylate (Amlodipine 5 Mg Tab) 5 mg PO DAILY [facility] Last Admin: 10/31/21 09:45 Dose: 5 mg Aspirin (Aspirin 325 Mg Tab) 325 mg PO QDAY [facility] Last Admin: 10/31/21 09:45 Dose: 325 mg Atorvastatin Calcium (Atorvastatin 40 Mg Tab) 40 mg PO QHS [facility] Last Admin: 10/30/21 22:13 Dose: 40 mg Famotidine (Famotidine 10 Mg Tab) 10 mg PO BID [facility] Last Admin: 10/31/21 09:44 Dose: 10 mg Heparin Sodium (Porcine) (Heparin 5,000 Unit/1 Ml Vial) 5,000 unit SUB-Q Q12HR [facility] Last Admin: 10/31/21 09:45 Dose: 5,000 unit Hydromorphone HCl (Hydromorphone 1 Mg/1 Ml Inj) 0.5 mg IV Q3H PRN PRN Reason: Pain , Severe (7-10) Isosorbide Mononitrate (Isosorbide Mononitrate Er 30 Mg Tab) 30 mg PO QDAY [facility] Last Admin: 10/31/21 09:44 Dose: 30 mg Morphine Sulfate (Morphine 2 Mg/1 Ml Inj) 2 mg IV Q4H PRN PRN Reason: Pain, Moderate (4-6) Ondansetron HCl (Ondansetron 4 Mg/2 Ml Inj) 4 mg IV Q8H PRN PRN Reason: Nausea And Vomiting Sodium Chloride (Sodium Chloride 0.9% 10 Ml Flush Syringe) 10 ml IV BID [facility] Last Admin: 10/31/21 09:45 Dose: 10 ml Sodium Chloride (Sodium Chloride 0.9% 10 Ml Flush Syringe) 10 ml IV PRN PRN PRN Reason: LINE FLUSH Spironolactone (Spironolactone 25 Mg Tab) 12.5 mg PO QDAY [facility] Last Admin: 10/31/21 09:44 Dose: 12.5 mg Review of Systems Cardiovascular: chest pain, shortness of breath, no orthopnea, no palpitations, no rapid/irregular heart beat, no edema, no syncope, no lightheadedness Physical Examination Vital Signs Pulse BP Pulse Ox 66 120/80 94 10/30/21 17:01 10/30/21 17:01 10/30/21 17:01 General appearance: no acute distress HEENT: Positive: PERRL Neck: Positive: neck supple Cardiac: Positive: Reg Rate and Rhythm Lungs: Positive: Decreased Breath Sounds Neuro: Positive: Grossly Intact Abdomen: Positive: Soft Male genitourinary: Positive: deferred Skin: Positive: Clear Extremities: Absent: edema Results 10/30/21 18:35 10/30/21 18:35 Cardiac Enzymes 10/30/21 Range/Units 18:35 AST 26 (5-40) units/L Coagulation 10/30/21 Range/Units 22:41 PT 13.4 (12.2-14.9) Sec. INR 0.92 (0.87-1.13) CBC 10/30/21 Range/Units 18:35 WBC 6.5 (4.5-11.0) K/mm3 RBC 4.38 (3.65-5.03) M/mm3 Hgb 13.2 (11.8-15.2) gm/dl Hct 41.3 (35.5-45.6) % Plt Count 186 (140-440) K/mm3 Lymph # (Auto) 1.7 (1.2-5.4) K/mm3 [place] # (Auto) 0.5 (0.0-0.8) K/mm3 Eos # (Auto) 0.1 (0.0-0.4) K/mm3 Baso # (Auto) 0.0 (0.0-0.1) K/mm3 Comprehensive Metabolic Panel 10/30/21 Range/Units 18:35 Sodium 145 (137-145) mmol/L Potassium 3.9 (3.6-5.0) mmol/L Chloride 108.7 H (98-107) mmol/L Carbon Dioxide 23 (22-30) mmol/L BUN 22 H (9-20) mg/dL Creatinine 0.9 (0.8-1.3) mg/dL Glucose 80 (75-100) mg/dL Calcium 8.5 (8.4-10.2) mg/dL AST 26 (5-40) units/L ALT 47 (7-56) units/L Alkaline Phosphatase 87 (35-129) units/L Total Protein 6.6 (6.3-8.2) g/dL Albumin 3.9 (3.9-5) g/dL EKG interpretations - Telemetry EKG Rhythm: Sinus Bradycardia (With old inferior infarct, no acute changes) Assessment and Plan - Patient Problems (1) Chest pain Current Visit: Yes Status: Acute Plan to address problem: Patient with a long history of coronary artery disease, on medical therapy for chronic stable angina due to small vessel disease. Most recent thallium stress test done 3 months ago at the [facility] was negative. At this time, we will optimize antianginal therapy, and optimize other guideline directed medical therapy for his chronic ischemic cardiomyopathy. The patient will be also recommended to have discussions with his outpatient suit attendant regarding his indication for primary ICD implant.
[2021-10-31] MEDS ORDERED: RANOLAZINE ER 500 MG TAB 12HR PO SCH (14:00)
--- NOTE | 2021-10-31 15:18 | Discharge Summary ---
Providers - Providers Date of Admission: 10/30/21 19:31 Date of discharge: 10/31/21 Attending physician: ANICETO YUEN 10/30/21 Consult to Cardiac Rehabilitation [CONS] Routine Reason For Exam: Phase 1 10/30/21 18:30 Consult to Cardiology [CONS] Stat Consulting Provider: NOÉ MAGAÑA Reason For Exam: acute chest pain Primary care physician: [facility] Hospitalization Condition: Good Hospital course: The patient is a 61-year-old man with long history of coronary artery disease with h/o four-vessel coronary artery bypass on 2015, receives his routine cardiac care at the [facility] and underwent a follow-up stress test just 3 months ago at the [facility], reported as negative, a severe ischemic cardiomyopathy ejection fraction at 20 to 25% on 1025, and he states that his doctors at the [facility] have reported that consistently at less than 30%. He is unaware of any recommendations by his outpatient cardiologists for primary ICD implant. He presents to the hospital at this time with chest pain, somewhat reminiscent of his chronic angina pectoris. He reports compliance with his medical therapy, but continues to smoke cigarettes AGAINST MEDICAL ADVICE. After initial management in the hospital, he is currently chest pain-free, asymptomatic. EKG was sinus bradycardia at 50, old inferior myocardial infarction, but no acute ST or T wave abnormality. Chest x-ray shows a mild to moderate cardiomegaly, clear lung arauz without infiltrate or edema. Cardiology recommended to continue on medical therapy for chronic stable angina due to small vessel disease. Most recent thallium stress test done 3 months ago at the [facility] was negative. At this time, cardiology recommended to optimize antianginal therapy, and optimize other guideline directed medical therapy for his chronic ischemic cardiomyopathy. The patient will be also recommended to have discussions with his outpatient dope heater regarding his indication for primary ICD implant. Patient discharged home with outpatient cardiology f/u. Disposition: HOME / SELF CARE / HOMELESS Final Discharge Diagnosis (Prints w/discharge instructions): -- Chest pain, due to small vessel coronary artery disease. -- Coronary artery disease. -- Hypertension. -- Tobacco abuse. -- Ischemic cardiomyopathy, compensated Time spent for discharge: 34 minutes Core Measure Documentation - Palliative Care Palliative Care/ Comfort Measures: Not Applicable - Core Measures Any of the following diagnoses?: heart failure - Heart Failure Discharge Requirements AGUSTO/ARB for LVSD if EF <40%: No Reason for no AGUSTO/ARB: Allergy or sensitivity Beta augie at discharge: No Reason for no beta augie on DC: Bradycardia Exam - Physical Exam Narrative exam: GENERAL: well-developed and well-nourished -[place]ish male lying on bed appeared to be in no discomfort. HEENT: Normocephalic. Atraumatic. No conjunctival congestion or icterus. Patient has moist mucous membranes. NECK: Supple. Trachea midline. CHEST/LUNGS: Clear to auscultated bilaterally, breathing nonlabored. No wheezes crackles or rhonchi. HEART/CARDIOVASCULAR: Regular in rate and rhythm. S1 and S2 positive. ABDOMEN: Abdomen is soft, nontender. Patient has normal bowel sounds. SKIN: There is no rash. Warm and dry. NEURO: No focal motor deficit. Follows command. MUSCULOSKELETAL: No joint effusion or tenderness. EXTRIMITY: No edema, no cyanosis or clubbing. PSYCH: Cooperative. - Constitutional Vitals: Temp Pulse Resp BP Pulse Ox 97.8 F 95 H 18 138/83 95 10/31/21 08:02 10/31/21 13:00 10/31/21 13:00 10/31/21 08:02 10/31/21 13:00 Plan Activity: advance as tolerated Weight Bearing Status: Non-Weight Bearing Diet: low fat, low salt Special Instructions: restrict fluid intake to (1.2 L daily), record daily weights Follow up with: [facility] [Primary Care Provider] - 7 Days NOÉ MAGAÑA MD [Staff Physician] - 7 Days Prescriptions: amLODIPine 5 mg PO DAILY #30 tab ISOSORBIDE MONOnitrate [Imdur ER] 60 mg PO QDAY #30 tablet Ranolazine ER [Ranexa ER] 500 mg PO BID #60 tablet
[2021-11-01] MEDS ORDERED: LISINOPRIL 10 MG TAB PO SCH (10:00)
== END 2021-10-31 17:52 | disposition home or self-care (01) | DRG 302 ==
LOC: ED 16:53 → 4A 19:31
PROVIDERS: ADMIT Internal Medicine; ATTEND Internal Medicine
DX: I25.118 Atherosclerotic heart disease of native coronary artery with other forms of angina pectoris (principal); I50.31 Acute diastolic (congestive) heart failure; E66.2 Morbid (severe) obesity with alveolar hypoventilation; I16.0 Hypertensive urgency; E78.5 Hyperlipidemia, unspecified; I11.0 Hypertensive heart disease with heart failure; K21.9 Gastro-esophageal reflux disease without esophagitis; I25.5 Ischemic cardiomyopathy; Z68.34 Body mass index [BMI] 34.0-34.9, adult; Z79.82 Long term (current) use of aspirin; I25.2 Old myocardial infarction; Z95.1 Presence of aortocoronary bypass graft; Z90.49 Acquired absence of other specified parts of digestive tract; Z83.3 Family history of diabetes mellitus; Z82.49 Family history of ischemic heart disease and other diseases of the circulatory system; Z88.8 Allergy status to other drugs, medicaments and biological substances
CPT/HCPCS: 36415; 71045; 80053; 82550; 83735; 84484; 85025; 85610; 93005; G0378; J1644; J2270; J2405